=== PATIENT | female | born 1945 | race Caucasian/White ===

== ENCOUNTER → 2017-12-31 | Day surgery (SDC) | payer OTHER ==
[2017-12-21 11:04] LABS: BASOPHILS # (AUTO) 0.1 (0.0-0.1); BASOPHILS % 0.7 % (0.0-1.0); EOSINOPHILS # (AUTO) 0.2 (0.0-0.4); EOSINOPHILS % 3.6 % (0.0-6.0); HEMOGLOBIN 13.6 g/dL (12.0-16.0); LYMPHOCYTES # (AUTO) 2.1 (1.0-3.2); LYMPHOCYTES % 31.3 % (18.0-39.1); MEAN CORPUSCULAR HEMOGLOBIN 31.6 pg (28-32); MEAN CORPUSCULAR HGB CONC 34.9 g/dL (31-35); MEAN CORPUSCULAR VOLUME 90.5 fL (81-99); MONOCYTES # (AUTO) 0.7 (0.2-0.8); MONOCYTES % 9.6 % (4.4-11.3); NEUTROPHILS # (AUTO) 3.6 (2.1-6.9); NEUTROPHILS % 54.1 % (38.7-80.0); PLATELET COUNT 244 x10e3/uL (140-360); RED BLOOD COUNT 4.31 x10e6/uL (3.6-5.1); RED CELL DISTRIBUTION WIDTH 12.2 % (11.7-14.4)
[2017-12-21 11:13] LABS: COLOR,URINE YELLOW (YELLOW)
[2017-12-21 11:14] LABS: BILIRUBIN,URINE NEGATIVE (NEGATIVE); CLARITY,URINE SL CLOUDY (CLEAR); KETONES,URINE NEGATIVE (NEGATIVE); LEUKOCYTE ESTERASE ,URINE TRACE (NEGATIVE); NITRITE,URINE NEGATIVE (NEGATIVE); PROTEIN,URINE DIPSTICK NEGATIVE (NEGATIVE); URINE UROBILINOGEN 0.2 mg/dL (0.2 - 1)
[2017-12-21 11:26] LABS: ALANINE AMINOTRANSFERASE 22 IU/L (0-55); ALBUMIN 4.1 g/dL (3.5-5.0); ALBUMIN/GLOBULIN RATIO 1.2 (0.8-2.0); ALKALINE PHOSPHATASE 74 IU/L (40-150); ANION GAP 12.4 mmol/L (8-16); BLOOD UREA NITROGEN 22 mg/dL (7-26); BUN/CREATININE RATIO 24 (6-25); CALCIUM 9.8 mg/dL (8.4-10.2); CARBON DIOXIDE 29 mmol/L (22-29); CHLORIDE 103 mmol/L (98-107); EST GLOMERULAR FILTRATION RATE > 60 ML/MIN (60-); GLUCOSE 112 mg/dL (74-118); POTASSIUM 4.4 mmol/L (3.5-5.1); SODIUM 140 mmol/L (136-145)
--- NOTE | 2017-12-21 12:35 | Diagnostic Imaging Report ---
PROCEDURE: Frontal and lateral views of the chest. COMPARISON: Patients [facility], , CHEST 2 VIEWS, 07/30/2016, 13:09. INDICATIONS: PRE-OP. DENIES CHEST COMPLAINTS FINDINGS: Lines/tubes: None. Lungs: The lungs are well inflated and clear. There is no evidence of pneumonia or pulmonary edema. Pleura: There is no pleural effusion or pneumothorax. Heart and mediastinum: Cardiac silhouette is unremarkable. Pulmonary vasculature is normal. Atherosclerotic calcification of aortic arch. Bones: No acute bony abnormality. IMPRESSION: 1. No acute cardiopulmonary abnormalities Kishore Cao M.D. Dictated by: Kishore Cao M.D. on 12/21/2017 at 12:39 Electronically approved by: Kishore Cao M.D. on 12/21/2017 at 12:39
[~2017-12-31] MED LIST: ASPIR 8181 MG PO; BUPIVACAINE 0.5%/EPI 30 ML SDV INJ ONE; DEXAMETHASONE SOD PHOS INJ 4 MG/ML VIAL ONE; FENTANYL CITRATE/PF 100MCG/2 ML INJ ONE; GLYCOPYRROLATE INJ 1MG/ 5 ML SYR ONE; KETOROLAC TROMETHAMINE 30 MG/ML VIAL ONE; LIDOCAINE HCL 2% JELLY 5 ML TUBE ONE; LIDOCAINE HCL 2% LOCAL INJ 5 ML SDV VIAL INJ ONE; LOSARTAN POTASS25 MG PO; MELOXICAM7.5 MG PO; MEPERIDINE HCL INJ 50 MG/ML INJ ONE; MIDAZOLAM HCL 2 MG/2 ML VIAL ONE; MUCINEX DM ER1 EACH PO; NEOSTIGMINE 5 MG/5ML SYR ONE; OMEPRAZOLE40 MG PO; ONDANSETRON HCL INJ 2 MG/ML VIAL ONE; PROPOFOL IV EMULSION 10 MG/ML 20 ML VIAL ONE; ROCURONIUM BROMIDE 10 MG/ML 5ML VIAL ONE; SEVOFLURANE INHAL SOLN 250 ML PEN BTL ONE; TAMIFLU75 MG PO; TIZANIDINE HCL4 MG PO; VITAMIN D; Z.0.ANASTROZOLE1 MG PO; Z.0.ASPIRIN325 MG PO; Z.0.OMEGA 3 FISH O1 PO; Z.0.PRILOSEC OTC20 M PO; [UNRECOGNIZED DRUG - OTHER]
--- NOTE | 2017-12-31 13:09 | Operative Report ---
DATE OF PROCEDURE: December 31, 2017 PREOPERATIVE DIAGNOSES: 1. Cholecystitis. 2. Cholelithiasis. POSTOPERATIVE DIAGNOSES: 1. Cholecystitis. 2. Cholelithiasis. 3. Incarcerated ventral hernia. OPERATIONS PERFORMED: 1. Laparoscopic cholecystectomy. 2. Repair of ventral hernia with mesh. PIT CLERK: Dr. Chadd Carrizales. ANESTHESIA: General. COMPLICATIONS: None. ESTIMATED BLOOD LOSS: Minimal. DESCRIPTION OF PROCEDURE: With the patient lying in bed in the supine position with general endotracheal anesthesia, the abdomen was prepped with Betadine solution and draped in the usual manner. A Veress needle was introduced into the right upper quadrant, and a pneumoperitoneum was established without any difficulty. A 5 mm trocar was placed in the right subcostal region, and a 5 mm video laparoscope was placed into the intraabdominal cavity. Video laparoscopy at this point revealed that unexpectedly the patient had an incarcerated hernia in the epigastric region. There was a good amount of omentum contained within this hernia. Another 5 mm trocar was then placed in the subxiphoid region, and all of the contents of the hernia were then reduced back to the intraabdominal cavity after dividing the incarcerated omentum that was contained within the hernia. A transverse incision was then made in the epigastric region, and the hernia sac was then dissected in all directions. An 11 mm trocar was placed through the hernia defect, and a 10 mm video laparoscope was then placed into the intraabdominal cavity. Laparoscopy of the rest of the abdomen at this point revealed the gallbladder to be totally covered up with adhesions with some mild fatty infiltration of the liver. Otherwise the rest of the abdominal exploration was within normal limits. The adhesions to the gallbladder were then slowly and carefully taken down, and perfect hemostasis was ascertained. The peritoneum overlying the neck of the gallbladder was then opened, and the cystic duct was identified. The cystic duct was followed to its junction with the common duct. The cystic duct was then circumferentially dissected away from the common duct, doubly clipped and divided. The cystic artery was similarly doubly clipped and divided. The gallbladder was then slowly and carefully taken off of the liver bed using the cautery scissors, and perfect hemostasis was ascertained. The gallbladder was placed in a pouch and removed through the epigastric trocar site. Video laparoscopy was then again carried out. The liver bed was found to be perfectly dry. All of the excess fluid was aspirated. The pneumoperitoneum was evacuated, and all of the trocars were removed under direct vision. The ventral hernia was then addressed. The hernia sac was then slowly and carefully dissected circumferentially, and the excess of the hernia sac was resected. After this was done, a medium-sized Ventralex patch was then placed intraabdominally and the defect was then closed transversely using interrupted sutures of 0 Ethibond anchoring the mesh on the way out. This gave us a satisfactory closure without any tension. The whole area was thoroughly irrigated. Perfect hemostasis was ascertained. All layers were infiltrated on the way out with solution of 1/4 percent Marcaine. The subcutaneous tissue was approximated with 3-0 Vicryl, and the skin was closed with subcuticular 5-0 Vicryl. Benzoin, Steri-Strips and dressings were applied. The sponge, lap and needle count was correct. The patient tolerated the procedure well and returned to the recovery room in stable condition. Job#: [id number]
== END | disposition home or self-care (01) ==
LOC: OR 07:21
PROVIDERS: ATTEND Surgery
DX: K80.10 Calculus of gallbladder with chronic cholecystitis without obstruction (principal); K43.6 Other and unspecified ventral hernia with obstruction, without gangrene; K76.0 Fatty (change of) liver, not elsewhere classified; I10 Essential (primary) hypertension; K21.9 Gastro-esophageal reflux disease without esophagitis; Z01.810 Encounter for preprocedural cardiovascular examination; Z01.812 Encounter for preprocedural laboratory examination; Z01.818 Encounter for other preprocedural examination; Z79.82 Long term (current) use of aspirin
CPT/HCPCS: 36415; 47562; 49561; 49568; 71046; 80053; 81003; 85025; 88304; 93005; C1766; C1781; J1100; J1885; J2001 ×2; J2175; J2250; J2405; J3490

== ENCOUNTER 2018-09-03 12:29 | Emergency (ER) | payer MEDICARE, OTHER ==
[~2018-09-03] VITALS: Ht 162.6 cm; Wt 75.3 kg
[~2018-09-03 12:29] MED LIST changes: -BUPIVACAINE 0.5%/EPI 30 ML SDV INJ ONE; -DEXAMETHASONE SOD PHOS INJ 4 MG/ML VIAL ONE; -FENTANYL CITRATE/PF 100MCG/2 ML INJ ONE; -GLYCOPYRROLATE INJ 1MG/ 5 ML SYR ONE; -KETOROLAC TROMETHAMINE 30 MG/ML VIAL ONE; -LIDOCAINE HCL 2% JELLY 5 ML TUBE ONE; -LIDOCAINE HCL 2% LOCAL INJ 5 ML SDV VIAL INJ ONE; -MEPERIDINE HCL INJ 50 MG/ML INJ ONE; -MIDAZOLAM HCL 2 MG/2 ML VIAL ONE; -NEOSTIGMINE 5 MG/5ML SYR ONE; -ONDANSETRON HCL INJ 2 MG/ML VIAL ONE; -PROPOFOL IV EMULSION 10 MG/ML 20 ML VIAL ONE; -ROCURONIUM BROMIDE 10 MG/ML 5ML VIAL ONE; -SEVOFLURANE INHAL SOLN 250 ML PEN BTL ONE
--- OUTSIDE RECORDS SUMMARY | 2018-09-03 12:32 | XMS REPORT | Continuity of Care Document ---
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 Active 04/23/2013 [facility] ROUTINE SCREENING Active 03/20/2013 [facility] 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 Active 02/08/2012 [facility] 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 Active 02/08/2012 [facility] Final: Encounter for screening mammogram for malignant neoplasm of breast 08/28/2016 [facility] ENCNTR SCREEN MAMMOGRAM FOR MALIGNANT NE Active [facility] INCISIONAL HERNIA Active [facility] Medications Medication Details Route Status Patient Instructions Ordering Provider Order Date Source Allergies, Adverse Reactions, Alerts Substance Category Reaction Severity Reaction type Status Date Reported Comments Source Immunizations Immunization Date Given Site Status Last Updated Comments Source Results Order Name Results Value Reference Range Date Interpretation Comments Source Breast Mammo Scrn CHRISTOPHER w bre incl CAD MA Breast Mammo Scrn CHRISTOPHER w bre incl CAD MA BILATERAL DIGITAL SCREENING MAMMOGRAM 3D/2D WITH CAD: 04/09/2018 CLINICAL: /Routine. Current study was evaluated with a Computer Aided Detection (CAD) system. COMPARISON:Comparison is made to exams dated: 08/25/2016 mammogram, 07/07/2015 mammogram, 06/02/2014 mammogram, 03/26/2013 mammogram, 03/06/2012 mammogram, and 02/17/2011 mammogram - [facility]. TECHNIQUE: Digital Breast Tomosynthesis was performed and utilized for Interpretation. [employer] Version 1.3 was utilized for computer aided detection. FINDINGS: There are scattered fibroglandular densities in both breasts. The patient is status post lumpectomy right breast. There are post operative and radiation changes in the right breast. There is a benign density in the right breast. There also are benign calcifications in both breasts. No significant masses, calcifications, or other findings are seen in either breast. There has been no significant interval change. IMPRESSION: BENIGN RECOMMENDATION:The patient is status post lumpectomy right breast. There is no mammographic evidence of malignancy. A 1 year screening mammogram is recommended.(04/10/2019) This exam was interpreted at [id number] for [facility]. Kolton hernández/judi:04/09/2018 14:27:39 Risk Advisor(s): Estefania Delgado, [facility] letter sent: BI-RADS 1/2 Mammogram BI-RADS: 2 Benign 04/09/2018 - - Read by: Kolton Ash MD Dictated Date/time: 04/09/18 14:27 Electronically Signed by: Kolton Ash MD 04/09/18 14:27 FINAL REPORT [facility] Abdomen complete US Abdomen complete US EXAM: Abdomen ultrasound. CLINICAL HX: R10.10 Upper abdominal pain, unspecified - R10.10 Upper abdominal pain, unspecified. Back pain, epigastric pain, nausea and vomiting. Age: 72 years. Gender: Female. TECHNIQUE: Grayscale and Doppler sonogram of the abdomen. COMPARISON: Abdomen ultrasound: 05/30/2016. FINDINGS: Midline structures: -- Pancreas: Visualized portion is unremarkable. -- Aorta: Visualized portion is unremarkable. -- IVC: Visualized portion is unremarkable. Liver: -- Parenchyma: Mild diffuse increased echogenicity. -- Length: 14.1 cm. -- Other: None. Main portal vein: -- Diameter: 1 cm. -- Flow: Normal directional flow. Gallbladder: -- Intraluminal gallstones: Stable to mildly increased layering gallstones or sludge. -- Wall: No thickening. -- Sonographic Baez sign: Negative. -- Other: None. Common bile duct: -- Diameter: 0.6 cm. Right kidney: -- Length: 10.2 cm. -- Hydronephrosis: Negative. -- Other: 1.1 cm simple appearing mid pole cyst. Left kidney: -- Length: 10.2 cm. -- Hydronephrosis: Negative. -- Other: None. Spleen: -- Measures 8.1 cm. -- Other: None. Other: None. IMPRESSION: 1. Stable to mildly increased layering gallstones or sludge. No evidence of acute cholecystitis. 2. Mildly echogenic liver which can be seen with fatty infiltration and other hepatocellular disease. 3. Small simple appearing right renal cyst. 10/23/2017 - - Read by: Moreno Ko MD Dictated Date/time: 10/24/17 07:15 Electronically Signed by: Moreno Ko MD 10/24/17 08:46 FINAL REPORT [facility] Breast Mammo Scrn CHRISTOPHER incl CAD MA Breast Mammo Scrn CHRISTOPHER incl CAD MA - BREAST MAMMO SCRN CHRISTOPHER INCL CAD MA BILATERAL DIGITAL SCREENING MAMMOGRAM WITH CAD: 08/25/2016 CLINICAL: Routine. Current study was evaluated with a Computer Aided Detection (CAD) system. Comparison is made to exams dated: 07/07/2015 mammogram, 06/02/2014 mammogram, 03/26/2013 mammogram, 03/06/2012 mammogram, 02/17/2011 mammogram and 03/03/2010 mammogram - [facility]. There are scattered fibroglandular densities in both breasts. Patient complains of intermittent breast pain and/or tenderness. The patient is status post lumpectomy right breast. There are post operative and radiation changes in the right breast. There are benign calcifications in both breasts. There also is a benign density in the right breast. No significant masses, calcifications, or other findings are seen in either breast. There has been no significant interval change. IMPRESSION: BENIGN Clinical management of the patient's breast complaints is recommended. The patient is status post lumpectomy right breast. There is no mammographic evidence of malignancy. A 1 year screening mammogram is recommended. Kolton hernández/judi:08/25/2016 12:48:56 Risk Advisor: Ermelinda Kendrick, [facility] This exam was dictated and interpreted by [id number] for [facility]. letter sent: Normal exam Mammogram BI-RADS: 2 Benign 08/25/2016 - - Read by: Kolton Ash MD Dictated Date/time: 08/25/16 12:48 Electronically Signed by: Kolton Ash MD 08/25/16 12:48 FINAL REPORT [facility] Abdomen complete US Abdomen complete US EXAM: Abdomen complete US HISTORY: R74.8 Abnormal levels of other serum enzymes COMPARISON: None FINDINGS: Liver: Measures 14 cm in length (normal: 13-17 cm). Echogenicity is increased, suggesting fatty infiltration and/or chronic hepatocellular disease. This decreases sensitivity for focal liver lesions although none is seen. Portal vein is patent with hepatopedal flow. Biliary: May stones and/or sludge noted in the gallbladder. There is no gallbladder wall thickening. There is no biliary duct dilation. Mid common bile duct measures 4 mm in diameter. Pancreas: No focal lesion. However, certain portions are obscured by overlying bowel gas and unable to be evaluated. Spleen: Measures 8.3 cm in maximal dimension (normal < 13 cm). No focal lesion is seen. Kidneys: Right and left measure 10.8 and 9.7 cm in length, respectively (normal for age). There is a 1 cm parapelvic cyst in the right kidney. No hydronephrosis, suspicious renal mass, or large shadowing stone. Vascular: Visualized portions of the IVC are patent. No obvious aneurysmal dilatation of the aorta. IMPRESSION: Tiny stones or layering sludge in the gallbladder without evidence of cholecystitis. 05/30/2016 - - Read by: Catherine Boyd MD Dictated Date/time: 05/30/16 10:55 Electronically Signed by: Catherine Boyd MD 05/30/16 10:56 FINAL REPORT [facility] Digital Mammo Screening Christopher MA Digital Mammo Screening Christopher MA - DIGITAL MAMMO SCREENING CHRISTOPHER MA BILATERAL DIGITAL SCREENING MAMMOGRAM WITH CAD: 07/07/2015 CLINICAL: Routine. Current study was evaluated with a Computer Aided Detection (CAD) system. Comparison is made to exams dated: 06/02/2014 mammogram, 03/26/2013 mammogram, 03/06/2012 mammogram, 02/17/2011 mammogram, 03/03/2010 mammogram and 09/02/2009 mammogram - [facility]. There are scattered fibroglandular densities in both breasts. The patient is status post lumpectomy right breast. There are post operative and radiation changes in the right breast. There are benign calcifications in both breasts. There also is a benign density in the right breast. No significant masses, calcifications, or other findings are seen in either breast. There has been no significant interval change. IMPRESSION: BENIGN The patient is status post lumpectomy right breast. There is no mammographic evidence of malignancy. A 1 year screening mammogram is recommended. Kolton hernández/judi:07/07/2015 15:09:53 Risk Advisor: Kate Rivers, [facility] This exam was dictated and interpreted by [id number] for [facility] [place]. letter sent: Normal exam Mammogram BI-RADS: 2 Benign 07/07/2015 - - Read by: Kolton Ash MD Dictated Date/time: 07/07/15 15:09 Electronically Signed by: Kolton Ash MD 07/07/15 15:09 FINAL REPORT [facility] Abdomen w/wo contrast MRI Abdomen w/wo contrast MRI Study: MR abdomen with and without contrast. COMPARISON: CT 02/17/2015 HISTORY: Q61.9 Cystic kidney disease, unspecified. TECHNIQUE: Multiplanar multisequential MR images of the abdomen were obtained before and after intravenous contrast administration. FINDINGS: No abnormal marrow signal or marrow enhancement is seen. No enlarged lymph nodes are seen in the abdomen. No free fluid or inflammatory changes are seen in the abdomen. The liver, gallbladder, spleen, adrenal glands, left kidney and pancreas are normal. There is a 1.0 cm nonenhancing hyperintense T2/isointense T1 lesion in the superior pole of right kidney likely representing a hemorrhagic/proteinaceous cyst. No enhancing renal mass is seen. IMPRESSION: 1.0 cm hemorrhagic/proteinaceous cyst in the right kidney. No enhancing renal mass. 05/04/2015 - - Read by: Donna Humphrey MD Dictated Date/time: 05/04/15 14:59 Electronically Signed by: Donna Humphrey MD 05/04/15 15:20 FINAL REPORT [place] CHEM PANEL eGFR 65 mL/min/1.73m2 02/17/2015 Result Comment: The eGFR is calculated using the CKD-EPI formula. In most young, healthy individuals the eGFR will be >90 mL/min/1.73m2. The eGFR declines with age. An eGFR of 60-89 may be normal in some populations, particularly the elderly, for whom the CKD-EPI formula has not been extensively validated. Use of the eGFR is not recommended in the following populations: Individuals with unstable creatinine concentrations, including patients and those with serious co-morbid conditions. Patients with extremes in muscle mass or diet. The data above are obtained from the National Kidney Disease Education Program (NKDEP) which additionally recommends that when the eGFR is used in patients with extremes of body mass index for purposes of drug dosing, the eGFR should be multiplied by the estimated BMI. [facility] CHEM PANEL POC Creatinine 0.9 mg/dL 0.5 - 1.4 02/17/2015 [facility] Abdomen/Pelvis w/wo IV contrast CT Abdomen/Pelvis w/wo IV contrast CT CT Abdomen with Contrast, CT Pelvis with Contrast: TECHNIQUE: Contiguous transaxial images of the abdomen and pelvis were performed from the lung bases to the superior pubic rami with IV contrast. Oral contrast was also administered COMPARISON: No priors CLINICAL HX: Incisional hernia CT ABDOMEN: Lower Chest: Minimal scarring is visualized at the lung bases. Cardiac size is upper range normal GI Tract: Small, supraumbilical, ventral abdominal hernia is visualized containing mesenteric fat. There is no bowel involvement. Appendix demonstrates normal morphology. There is no evidence for free fluid or free air in the abdomen. Tract and retroperitoneum: 11 mm intermediate density focus is visualized in the upper pole of right kidney. The kidneys otherwise demonstrate normal morphology and symmetric excretion. No significant retroperitoneal lymphadenopathy is noted. Abdominal viscera: The spleen, pancreas, both adrenals, and the gallbladder demonstrate normal morphology. Fatty infiltration of the liver. Vasculature: Aorta demonstrates normal morphology. Bone and Soft tissues: No significant bony abnormality is noted. CT PELVIS: The bladder and adnexa demonstrate normal morphology. Mildly enlarged uterus with calcified fibroids. No free fluid is present in the pelvis. IMPRESSION: Small supraumbilical, ventral abdominal hernia containing mesenteric fat is visualized. There is no bowel involvement. Intermediate density lesion, upper pole of right kidney. Differential considerations include complex cyst versus neoplasm. Contrast MRI of kidneys is recommended for further evaluation. Fatty infiltration of liver. Mildly enlarged fibroid uterus. No other significant abnormality is noted on the contrast CT of the abdomen or pelvis. SL:13 02/17/2015 - - Read by: Heri Mtz MD Dictated Date/time: 02/18/15 08:10 Electronically Signed by: Heri Mtz MD 02/18/15 08:41 FINAL REPORT [facility] Digital Mammo Screening Christopher MA Digital Mammo Screening Christopher MA - DIGITAL MAMMO SCREENING CHRISTOPHER MA BILATERAL DIGITAL SCREENING MAMMOGRAM WITH CAD: 06/02/2014 CLINICAL: Routine. Current study was evaluated with a Computer Aided Detection (CAD) system. Comparison is made to exams dated: 03/26/2013 mammogram, 03/06/2012 mammogram, 02/17/2011 mammogram, 03/03/2010 mammogram, 09/02/2009 mammogram and 02/22/2009 mammogram - [facility]. There are scattered fibroglandular densities in both breasts. The patient is status post lumpectomy right breast. There are post operative and radiation changes in the right breast. There is no suspicious mammographic finding seen in either breast to correspond with the chronic non-bloody discharge from the nipple which likely represents physiological discharge. There are benign calcifications in both breasts. There also is a benign density in the right breast. No significant masses, calcifications, or other findings are seen in either breast. There has been no significant interval change. IMPRESSION: BENIGN The patient is status post lumpectomy right breast. There is no mammographic evidence of malignancy. A screening mammogram in one year is recommended. Kolton hernández/penrad:06/03/2014 08:22:28 Risk Advisor: Kae Davey, [facility] This exam was dictated and interpreted by [id number] for [facility]. letter sent: Normal exam Mammogram BI-RADS: 2 Benign 06/02/2014 - - Read by: Kolton Ash MD Dictated Date/time: 06/03/14 08:22 Electronically Signed by: Kolton Ash MD 06/03/14 08:22 FINAL REPORT [facility] Chest 2 views Chest 2 views Exam: Two-view chest x-ray Reason for Exam: Chest pain Comparison Exam: Chest x-ray 04/04/2006 Discussion: Cardiomediastinal silhouette is within normal limits. Both hemidiaphragms well visualized. No pulmonary edema or pleural effusions. No focal lung consolidations. Trachea is midline. No acute bony abnormalities. Impression: 1. No acute cardiopulmonary abnormalities. 03/31/2014 - - Read by: Fidel Chapman MD Dictated Date/time: 03/31/14 12:32 Electronically Signed by: Fidel Chapman MD 03/31/14 12:32 FINAL REPORT [facility] Breast US Breast US - BREAST US ULTRASOUND OF BOTH BREASTS AND BOTH AXILLA: 05/08/2013 CLINICAL: Discharge. Comparison is made to exams dated: 03/26/2013 mammogram, 03/06/2012 mammogram, 02/17/2011 mammogram, 03/03/2010 mammogram and 09/02/2009 mammogram - [facility]. Color flow and real-time ultrasound of both breasts and both axilla were performed. Humphries scale images of the real-time examination were reviewed. There are post operative changes and a post surgical scar right breast that correlate with mammography. No abnormalities were seen sonographically in either breast or either axilla. IMPRESSION: NEGATIVE There is no sonographic evidence of malignancy. There is no sonographic abnormality seen in either breast to correspond with the non-bloody discharge from the nipple which likely represents physiological discharge. Return to annual mammogram screening schedule is recommended. SUMMARY: It was discussed with the patient that if clinical symptoms worsen, follow up with additional imaging is recommended. The patient will follow up with their primary care physician. Kolton hernández/judi:05/08/2013 13:42:32 Risk Advisor: Opal Ingram, [facility] This exam was dictated and interpreted by [id number] at [facility], 13. letter sent: Normal exam Ultrasound BI-RADS: 1 Negative 05/08/2013 - - Read by: Kolton Ash Dictated Date/time: 05/08/13 13:42 Electronically Signed by: Kolton Ash MD 05/08/13 13:42 FINAL REPORT [facility] Digital Mammo Screening Christopher MA Digital Mammo Screening Christopher MA - DIGITAL MAMMO SCREENING CHRISTOPHER MA BILATERAL DIGITAL SCREENING MAMMOGRAM WITH CAD: 03/26/2013 CLINICAL: Routine. Current study was evaluated with a Computer Aided Detection (CAD) system. Comparison is made to exams dated: 03/06/2012 mammogram, 02/17/2011 mammogram, 03/03/2010 mammogram, 02/22/2009 mammogram, 09/02/2009 mammogram and 09/01/2008 mammogram - [facility]. There are scattered fibroglandular elements in both breasts that could obscure a lesion on mammography. The patient is status post lumpectomy right breast. There are post operative and radiation changes in the right breast. There are benign calcifications in both breasts. There also is a benign density in the right breast. No significant masses, calcifications, or other findings are seen in either breast. There has been no significant interval change. IMPRESSION: BENIGN The patient is status post lumpectomy right breast. There is no mammographic evidence of malignancy. A screening mammogram in one year is recommended. Kolton ramost/penlynn:03/26/2013 13:36:07 Risk Advisor: Josee Hicks, [facility] This exam [place] dictated [place] [id number] [facility] [address], [place] 13. letter sent: Normal exam Mammogram BI-RADS: 2 Benign 03/26/2013 - - Read by: Kolton Ash Dictated Date/time: 03/26/13 13:36 Electronically Signed by: Kolton Ash MD 03/26/13 13:36 FINAL REPORT [place] Extremity venous Duplex bilat US Extremity venous Duplex bilat US Bilateral Lower Extremity Doppler. History: Pain Comparison: None. Findings: Grayscale, color Doppler, and spectral wave form analysis was performed of the bilateral lower extremities. There is normal compressibility and wave form throughout the lower extremities with adequate response to augmentation. Impression: 1. Negative for deep venous thrombosis of the lower extremities bilaterally. 02/20/2013 - - Read by: Pk Macdonald Dictated Date/time: 02/20/13 13:16 Electronically Signed by: Pk Macdonald MD 02/20/13 13:18 FINAL REPORT [facility] Knee AP and lateral Knee AP and lateral EXAMINATION: Left knee radiographic series dated 02/20/2013 COMPARISON: None INDICATION: Disorder of bone and cartilage FINDINGS: There is no fracture, dislocation or subluxation. There is mild joint space narrowing at the medial compartment of the tibiofemoral joint as well as mild tibial intercondylar tubercle spurring. The patellofemoral joint space is preserved and alignment is maintained. The overlying superficial soft tissues are unremarkable. IMPRESSION: No acute bony abnormality. 02/20/2013 - - Read by: Humberto Ramon Dictated Date/time: 02/20/13 13:40 Electronically Signed by: Humberto Ramon MD 02/20/13 13:41 FINAL REPORT [facility] Vital Signs Vital Sign Value Date Comments Source Encounters Location Location Details Encounter Type Encounter Number Reason For Visit Attending Provider ADM Date DC Date Status Source [facility] Outpatient [id number] 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 MOHAMED [place] 03/06/2012 03/06/2012 Active [facility] Outpatient [id number] ROUTINE SCREENING FINN FOSS 03/26/2013 Active [facility] Outpatient [id number] 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 FINN FOSS 05/08/2013 Active [facility] [id number] Finn Foss 03/31/2014 04/01/2014 [facility] Outpatient [id number] Vipulkumar Foss 06/02/2014 06/03/2014 [facility] Outpatient [id number] Finn Foss 02/17/2015 02/18/2015 [facility] Outpatient Imaging [facility] Out[facility] [id number] Finn Foss 05/04/2015 05/05/2015 [facility] Outpatient [id number] Finn Foss 07/07/2015 07/08/2015 [facility] [id number] Finn Foss 05/30/2016 05/31/2016 [facility] Outpatient [id number] Finn Foss 08/25/2016 08/26/2016 [facility] [id number] Finn Foss 10/23/2017 10/24/2017 [facility] Procedures Procedure Code Date Perfomer Comments Source
[2018-09-03] MEDS ORDERED: SODIUM CHLORIDE 0.9% 1000ML 1,000 ML IV STA (12:58)
[2018-09-03] MEDS ORDERED: ONDANSETRON HCL INJ 2MG/ML 2ML 2 MG/ML VIAL IV STA (12:58)
[2018-09-03] MEDS ORDERED: HYOSCYAMINE 0.125 MG TAB PO ONE (13:00)
[2018-09-03 13:40] LABS: BASOPHILS % 0.4 % (0.0-1.0); EOSINOPHILS # (AUTO) 0.3 (0.0-0.4); EOSINOPHILS % 3.9 % (0.0-6.0); HEMATOCRIT 37.7 % (34.2-44.1); HEMOGLOBIN 13.1 g/dL (12.0-16.0); LYMPHOCYTES # (AUTO) 1.6 (1.0-3.2); LYMPHOCYTES % 23.9 % (18.0-39.1); MEAN CORPUSCULAR HEMOGLOBIN 31.5 pg (28-32); MEAN CORPUSCULAR HGB CONC 34.7 g/dL (31-35); MEAN CORPUSCULAR VOLUME 90.6 fL (81-99); MONOCYTES # (AUTO) 0.7 (0.2-0.8); MONOCYTES % 10.6 % (4.4-11.3); NEUTROPHILS # (AUTO) 4.2 (2.1-6.9); NEUTROPHILS % 60.6 % (38.7-80.0); PLATELET COUNT 243 x10e3/uL (140-360); RED BLOOD COUNT 4.16 x10e6/uL (3.6-5.1); RED CELL DISTRIBUTION WIDTH 12.6 % (11.7-14.4)
[2018-09-03 13:57] LABS: BILIRUBIN,URINE NEGATIVE (NEGATIVE); CLARITY,URINE SL CLOUDY (CLEAR); COLOR,URINE YELLOW (YELLOW); KETONES,URINE NEGATIVE (NEGATIVE); LEUKOCYTE ESTERASE ,URINE TRACE (NEGATIVE); NITRITE,URINE NEGATIVE (NEGATIVE); PROTEIN,URINE DIPSTICK NEGATIVE (NEGATIVE); URINE UROBILINOGEN 0.2 mg/dL (0.2 - 1)
[2018-09-03 14:00] LABS: ALANINE AMINOTRANSFERASE 21 IU/L (0-55); ALBUMIN 4.2 g/dL (3.5-5.0); ALBUMIN/GLOBULIN RATIO 1.4 (0.8-2.0); ALKALINE PHOSPHATASE 77 IU/L (40-150); AMYLASE 56 U/L (25-125); ANION GAP 12.9 mmol/L (8-16); BLOOD UREA NITROGEN 15 mg/dL (7-26); BUN/CREATININE RATIO 18 (6-25); CALCIUM 9.7 mg/dL (8.4-10.2); CARBON DIOXIDE 24 mmol/L (22-29); CHLORIDE 107 mmol/L (98-107); CREATINE KINASE 119 IU/L (29-168); CREATININE, SERUM 0.83 mg/dL (0.57-1.11); EST GLOMERULAR FILTRATION RATE > 60 ML/MIN (60-); GLUCOSE 103 mg/dL (74-118); LIPASE 24 U/L (8-78); POTASSIUM 3.9 mmol/L (3.5-5.1); SODIUM 140 mmol/L (136-145)
[2018-09-03 14:09] LABS: EPITHELIAL CELLS,URINE RARE /LPF; WBC,URINE (MAN) 0-5 /HPF (0-5)
--- NOTE | 2018-09-03 15:28 | Diagnostic Imaging Report ---
EXAM: ABDOMEN 2 VIEW DATE: 09/03/2018 12:58 PM INDICATION: Abdominal pain COMPARISON: None FINDINGS: 2 views of the abdomen were obtained supine and upright. There is a normal distribution of air in the small and large bowel. No abnormal fluid levels or pneumoperitoneum on upright view. Cholecystectomy clips are seen. Multiple calcifications in the pelvis are likely due to phleboliths. There are degenerative changes in the lumbar spine and hips. IMPRESSION: No evidence for bowel dilatation or obstruction. No pneumoperitoneum. Signed by: Dr. Markus Rowland M.D. on 09/03/2018 3:25 PM
[2018-09-03] MEDS ORDERED: TRAMADOL HCL 50 MG TAB ONE (15:51)
[2018-09-03] MEDS ORDERED: TRAMADOL HCL 50 MG TAB PO ONE (16:00)
== END 2018-09-03 16:03 | disposition home or self-care (01) ==
LOC: ER 12:29
DX: R10.33 Periumbilical pain (principal); R11.0 Nausea; I10 Essential (primary) hypertension; K21.9 Gastro-esophageal reflux disease without esophagitis
CPT/HCPCS: 36415; 74019; 80053; 81001; 82150; 82550; 82553; 83690; 83880; 84484; 85025; 87086; 93005; 99284

== ENCOUNTER → 2019-08-08 | Outpatient (CLI) | payer MEDICARE ==
--- NOTE | 2019-08-08 15:26 | Diagnostic Imaging Report ---
Bone Scan, delayed phase INDICATION: 74 F with history of breast cancer 12 years ago and history of monoclonal gammopathy diagnosed 20 years ago. COMPARISON: Prior bone scan 01/02/2008 REPORT: Approximately 3 hours following intravenous administration of 27.5 mCi of Tc-99m MDP, delayed total body images in the anterior and posterior projections and selected spot images were obtained. Diffuse degenerative changes are see in the mid thoracic spine. Otherwise, distribution of tracer activity is unremarkable throughout the skeletal system. No abnormal accumulation of tracer is seen in the soft tissues or urinary tract. IMPRESSION: No scan evidence of metastatic or metabolic bone disease. Signed by: Dr. Yu Jones M.D. on 08/08/2019 3:23 PM
== END ==
LOC: NM 07:52
PROVIDERS: ATTEND Radiology Body Imaging
DX: Z85.3 Personal history of malignant neoplasm of breast (principal); M89.9 Disorder of bone, unspecified; D47.2 Monoclonal gammopathy
CPT/HCPCS: 78306; A9503

== ENCOUNTER → 2021-07-15 | Outpatient (CLI) | payer MEDICARE | LOC: RAD 14:15 | PROVIDERS: ATTEND Internal Medicine | DX: J41.0 Simple chronic bronchitis (principal) | CPT/HCPCS: 71046 ==

== ENCOUNTER 2022-03-12 20:57 | Emergency (ER) | payer MEDICARE ==
[~2022-03-12] VITALS: Ht 162.6 cm; Wt 75.3 kg
[2022-03-12 21:37] LABS: ALBUMIN 4.4 g/dL (3.5-5.0); ALBUMIN/GLOBULIN RATIO 1.4 (0.8-2.0); ANION GAP 15.8 mmol/L (8-16); CALCIUM 9.5 mg/dL (8.4-10.2); CREATININE, SERUM 0.88 mg/dL (0.57-1.11); POTASSIUM 3.8 mmol/L (3.5-5.1)
[2022-03-12 21:40] LABS: BASOPHILS % 0.4 % (0.0-1.0); EOSINOPHILS # (AUTO) 0.2 (0.0-0.4); HEMATOCRIT 41.7 % (34.2-44.1); HEMOGLOBIN 13.9 g/dL (12.0-16.0); LYMPHOCYTES # (AUTO) 3.4 (1.0-3.2); LYMPHOCYTES % 43.3 % (18.0-39.1); MEAN CORPUSCULAR HEMOGLOBIN 31.2 pg (28-32); MEAN CORPUSCULAR HGB CONC 33.3 g/dL (31-35); MEAN CORPUSCULAR VOLUME 93.7 fL (81-99); MONOCYTES # (AUTO) 0.7 (0.2-0.8); MONOCYTES % 9.1 % (4.4-11.3); NEUTROPHILS # (AUTO) 3.5 (2.1-6.9); NEUTROPHILS % 43.8 % (38.7-80.0); PLATELET COUNT 252 x10e3/uL (140-360); RED BLOOD COUNT 4.45 x10e6/uL (3.6-5.1)
== END 2022-03-12 23:55 | disposition home or self-care (01) ==
LOC: ER 21:02
DX: R42 Dizziness and giddiness (principal); U07.1 COVID-19; R07.9 Chest pain, unspecified; I10 Essential (primary) hypertension; K21.9 Gastro-esophageal reflux disease without esophagitis; F41.9 Anxiety disorder, unspecified; R94.31 Abnormal electrocardiogram [ECG] [EKG]; Z85.3 Personal history of malignant neoplasm of breast
CPT/HCPCS: 36415; 71045; 80053; 84484; 85025; 85379; 93005; 99284; U0002

== ENCOUNTER → 2023-05-30 | Outpatient (REF) | payer MEDICARE | LOC: US 09:01 | PROVIDERS: ATTEND Internal Medicine | DX: R31.9 Hematuria, unspecified (principal) | CPT/HCPCS: 76700 ==

== ENCOUNTER → 2024-04-24 | Outpatient (REF) | payer MEDICARE | LOC: RAD 14:19 | PROVIDERS: ATTEND Internal Medicine | DX: M19.012 Primary osteoarthritis, left shoulder (principal); M19.011 Primary osteoarthritis, right shoulder; M16.12 Unilateral primary osteoarthritis, left hip ==

== ENCOUNTER 2024-10-01 12:15 | Emergency (ER) | payer MEDICARE ==
[~2024-10-01] VITALS: Ht 162.6 cm; Wt 72.1 kg
[2024-10-01 12:34] VITALS: PULSE 112; RESP 18; TEMP 98.9
[2024-10-01] MEDS: ACETAMINOPHEN 325 MG TAB PO ONE (13:56)
[2024-10-01 14:08] VITALS: BP 127/84; PULSE 74; RESP 18; TEMP 98.3; O2SAT 98
== END 2024-10-01 14:05 | disposition home or self-care (01) ==
LOC: ER 12:26
DX: M25.511 Pain in right shoulder (principal); S43.491A Other sprain of right shoulder joint, initial encounter; W01.0XXA Fall on same level from slipping, tripping and stumbling without subsequent striking against object, initial encounter; Y93.01 Activity, walking, marching and hiking; Y92.89 Other specified places as the place of occurrence of the external cause; I10 Essential (primary) hypertension; K21.9 Gastro-esophageal reflux disease without esophagitis; M19.09 Primary osteoarthritis, other specified site; F41.9 Anxiety disorder, unspecified; Z85.3 Personal history of malignant neoplasm of breast
CPT/HCPCS: 99284